=== PATIENT | female | born 1930 ===

== ENCOUNTER 2018-08-15 06:41 | Day surgery (SDC) | payer OTHER ==
[~2018-08-15 06:41] MED LIST: ANTI-GAS166 MG PO; CLONAZEPAM0.5 MG PO; COZAAR25 MG PO; GINKGO BILOBA120 MG PO; LEVOBUNOLOL; LIPITOR20 MG PO; LUMIGAN2.5 M1 OPHT; METHAZOLAMIDE50 MG PO; NITROSTAT0.4 MG SL; NORVASC2.5 M1 PO; OMEGA-31000 MG PO; PRESERVISION L1 EACH PO; PRUNELAX; TOPROL XL25 MG PO; ZETIA10 MG PO; [UNRECOGNIZED DRUG - OTHER]
[2018-08-15] MEDS ORDERED: IBUPROFEN400 MG PO (10:39)
== END 2018-08-15 14:33 | disposition home or self-care (01) ==
LOC: CIR.AMB 06:41
DX: C51.8 Malignant neoplasm of overlapping sites of vulva (principal)